=== PATIENT | female | born 1990 | race Caucasian/White ===

== ENCOUNTER 2021-11-07 19:13 | Emergency (ER) | payer MEDICAID ==
[~2021-11-07] VITALS: Ht 149.9 cm; Wt 61.4 kg
[2021-11-07] MEDS ORDERED: FAMOTIDINE INJ 20MG/2ML VIAL (S0028 PER 1) IVP ONE (20:05)
[2021-11-07] MEDS ORDERED: methylPREDNISolone 125MG 2ML VIAL IV ONE (20:05)
[2021-11-07 20:13] VITALS: BP 120/69
[2021-11-07] MEDS ORDERED: ZOLO25TA PO (21:23)
[2021-11-07] MEDS ORDERED: LAMI5CHW PO (21:25)
[2021-11-07] MEDS ORDERED: LATU20TA PO (21:26)
[2021-11-07] MEDS ORDERED: ZOLO100T PO (21:45)
[2021-11-07] MEDS ORDERED: LAMI1TAB8 PO (21:47)
[2021-11-07] MEDS ORDERED: LATU120T PO (21:47)
[2021-11-07] MEDS ORDERED: CLON0.2T PO (21:48)
[2021-11-07] MEDS ORDERED: OMEP40CA4 PO (21:50)
== END 2021-11-07 22:29 | disposition home or self-care (01) ==
LOC: M ED 19:13
DX: L50.9 Urticaria, unspecified (principal); T36.0X5A Adverse effect of penicillins, initial encounter; Z88.0 Allergy status to penicillin
CPT/HCPCS: 93041; 94760; 96374; 96375; 99285; J2930

== ENCOUNTER 2022-04-23 22:24 | Emergency (ER) | payer MEDICAID ==
[~2022-04-23] VITALS: Ht 149.9 cm; Wt 66.2 kg
[~2022-04-23 22:24] MED LIST: CLON0.2T PO; LAMI1TAB8 PO; LAMI5CHW PO; LATU120T PO; LATU20TA PO; OMEP40CA4 PO; ZOLO100T PO; ZOLO25TA PO
[2022-04-23 22:25] VITALS: BP 121/79
[2022-04-24 00:53] LABS: BASO % 0.3 % (0.0-1.0); EOS # 0.1 10^3/uL (0.0-0.5); EOS % 0.7 % (0.0-3.0); HEMATOCRIT 41.9 % (36.0-47.0); HEMOGLOBIN 13.9 g/dl (12.0-15.5); LYMPH # 4.5 10^3/uL (1.5-5.0); LYMPH % 37.2 % (24.0-44.0); MEAN CORPUSCULAR HEMOGLOBIN 28.5 pg (27.0-33.0); MEAN CORPUSCULAR HGB CONC 33.2 g/dl (32.0-36.5); MONO # 0.7 10^3/uL (0.0-0.8); MONO % 5.9 % (2.0-8.0); NEUTROPHILS # 6.7 10^3/uL (1.5-8.5); NEUTROPHILS % 55.7 % (36.0-66.0); PLATELET COUNT, AUTOMATED 326 10^3/uL (150-450); RED BLOOD COUNT 4.87 10^6/uL (4.00-5.40)
[2022-04-24 01:21] LABS: ALBUMIN 4.2 GM/DL (3.2-5.2); ALT/SGPT 18 U/L (12-78); AMYLASE 66 U/L (25-115); BILIRUBIN,DIRECT < 0.1 MG/DL (0.0-0.2); BILIRUBIN,TOTAL 0.2 MG/DL (0.2-1.0); BLOOD UREA NITROGEN 11 MG/DL (7-18); CALCIUM LEVEL 9.9 MG/DL (8.5-10.1); CARBON DIOXIDE LEVEL 28 MEQ/L (21-32); CHLORIDE LEVEL 106 MEQ/L (98-107); GLOMERULAR FILTRATION RATE > 60.0 (>60); GLUCOSE, FASTING 102 MG/DL (70-100); LIPASE 286 U/L (73-393); POTASSIUM SERUM 4.4 MEQ/L (3.5-5.1); SODIUM LEVEL 140 MEQ/L (136-145); TOTAL PROTEIN 7.8 GM/DL (6.4-8.2)
[2022-04-24] MEDS ORDERED: VIEN1TAB (13:46)
[2022-04-24] MEDS ORDERED: LINZ290C (13:46)
== END 2022-04-24 02:00 | disposition left against medical advice (07) ==
LOC: M ED 22:24
DX: Z53.21 Procedure and treatment not carried out due to patient leaving prior to being seen by health care provider (principal)

== ENCOUNTER 2022-04-24 13:35 | Emergency (ER) | payer MEDICAID, MEDICARE ==
[~2022-04-24] VITALS: Ht 149.9 cm; Wt 66.0 kg
[2022-04-24] MEDS ORDERED: VIEN1TAB (13:46)
[2022-04-24] MEDS ORDERED: LINZ290C (13:46)
[2022-04-24 14:44] LABS: HEMATOCRIT 39.5 % (36.0-47.0); HEMOGLOBIN 13.2 g/dl (12.0-15.5); MEAN CORPUSCULAR HEMOGLOBIN 28.5 pg (27.0-33.0); MEAN CORPUSCULAR HGB CONC 33.4 g/dl (32.0-36.5); MEAN CORPUSCULAR VOLUME 85.3 fl (80.0-96.0); PLATELET COUNT, AUTOMATED 275 10^3/uL (150-450); RED BLOOD COUNT 4.63 10^6/uL (4.00-5.40); WHITE BLOOD COUNT 8.3 10^3/uL (4.0-10.0)
[2022-04-24 15:09] LABS: HCG, SERUM QUALITATIVE NEGATIVE (NEGATIVE)
[2022-04-24 15:14] LABS: AMPHETAMINES LEVEL URINE NEGATIVE (NEGATIVE); BARBITURATES URINE NEGATIVE (NEGATIVE); BENZODIAZEPINES URINE POSITIVE (NEGATIVE); CANNABINOIDS URINE POSITIVE (NEGATIVE); COCAINE METABOLITE URINE NEGATIVE (NEGATIVE); METHADONE URINE NEGATIVE (NEGATIVE); OPIATES URINE NEGATIVE (NEGATIVE); PHENCYCLIDINE URINE NEGATIVE (NEGATIVE)
[2022-04-24 15:26] LABS: ACETAMINOPHEN LEVEL < 2.0 UG/ML (10.0-30.0); ALBUMIN 3.9 GM/DL (3.2-5.2); ALT/SGPT 16 U/L (12-78); BILIRUBIN,DIRECT < 0.1 MG/DL (0.0-0.2); BILIRUBIN,TOTAL 0.2 MG/DL (0.2-1.0); BLOOD UREA NITROGEN 11 MG/DL (7-18); CALCIUM LEVEL 9.9 MG/DL (8.5-10.1); CARBON DIOXIDE LEVEL 25 MEQ/L (21-32); CHLORIDE LEVEL 107 MEQ/L (98-107); CREATININE FOR GFR 0.96 MG/DL (0.55-1.30); ETHYL ALCOHOL (ETHANOL) < 0.003 % (0.000-0.010); GLOMERULAR FILTRATION RATE > 60.0 (>60); GLUCOSE, FASTING 86 MG/DL (70-100); LIPASE 247 U/L (73-393); POTASSIUM SERUM 4.3 MEQ/L (3.5-5.1); SALICYLATE LEVEL < 1.7 MG/DL (5.0-30.0); SODIUM LEVEL 140 MEQ/L (136-145); TOTAL PROTEIN 7.2 GM/DL (6.4-8.2)
[2022-04-24] MEDS ORDERED: GI COCKTAIL 50ML BTL(HYOSCYAMINE/MAALOX/LIDOCAINE VISCOUS)(1:3:1) PO ONE (15:35)
[2022-04-24 19:07] VITALS: BP 114/68
== END 2022-04-24 19:26 | disposition home or self-care (01) ==
LOC: M ED 13:35
DX: R10.9 Unspecified abdominal pain (principal); F60.3 Borderline personality disorder; Z88.0 Allergy status to penicillin; Z79.899 Other long term (current) drug therapy

== ENCOUNTER 2024-02-12 18:09 | Emergency (ER) | payer OTHER, MEDICAID ==
[~2024-02-12] VITALS: Ht 149.9 cm; Wt 79.4 kg
[~2024-02-12 18:09] MED LIST changes: +LINZ290C; +VIEN1TAB
[2024-02-12] MEDS ORDERED: DULO1CAP6 PO (18:26)
[2024-02-12] MEDS ORDERED: JUNETAB PO (18:26)
[2024-02-12] MEDS ORDERED: TRAZ150T90 PO (18:26)
[2024-02-12] MEDS ORDERED: PRAZ1CAP PO (18:26)
[2024-02-12] MEDS ORDERED: GABA-282 PO (18:26)
[2024-02-12] MEDS: ONDANSETRON 4MG ORAL DISINTEGRATING TAB PO ONE (19:04)
[2024-02-12 19:06] LABS: HEMATOCRIT 39.2 % (36.0-47.0); HEMOGLOBIN 12.9 g/dl (12.0-15.5); MEAN CORPUSCULAR HEMOGLOBIN 26.7 pg (27.0-33.0); MEAN CORPUSCULAR HGB CONC 32.9 g/dl (32.0-36.5); MEAN CORPUSCULAR VOLUME 81.2 fl (80.0-96.0); PLATELET COUNT, AUTOMATED 287 10^3/uL (150-450); RED BLOOD COUNT 4.83 10^6/uL (4.00-5.40); WHITE BLOOD COUNT 10.1 10^3/uL (4.0-10.0)
[2024-02-12 19:29] LABS: AMPHETAMINES LEVEL URINE NEGATIVE (NEGATIVE); BARBITURATES URINE NEGATIVE (NEGATIVE); BENZODIAZEPINES URINE NEGATIVE (NEGATIVE); COCAINE METABOLITE URINE NEGATIVE (NEGATIVE); METHADONE URINE NEGATIVE (NEGATIVE); OPIATES URINE NEGATIVE (NEGATIVE); PHENCYCLIDINE URINE NEGATIVE (NEGATIVE)
[2024-02-12 19:30] LABS: CANNABINOIDS URINE NEGATIVE (NEGATIVE)
[2024-02-12 19:33] LABS: ALBUMIN 3.6 G/DL (3.2-5.2); ALKALINE PHOSPHATASE 87 U/L (46-116); ALT/SGPT 20 U/L (7.0-40); AST/SGOT 16 U/L (<34); BILIRUBIN,DIRECT < 0.1 MG/DL (<0.4); BILIRUBIN,TOTAL < 0.2 MG/DL (0.3-1.2); BLOOD UREA NITROGEN 9 MG/DL (9-23); CALCIUM LEVEL 9.4 MG/DL (8.5-10.1); CARBON DIOXIDE LEVEL 29 MMOL/L (20-31); CHLORIDE LEVEL 102 MMOL/L (98-107); CREATININE FOR GFR 0.98 MG/DL (0.55-1.30); GLOMERULAR FILTRATION RATE > 60.0 (>60); GLUCOSE, FASTING 85 MG/DL (60-100); POTASSIUM SERUM 3.8 MMOL/L (3.5-5.1); SALICYLATE LEVEL < 3.0 MG/DL (<30); SODIUM LEVEL 137 MMOL/L (136-145); TOTAL PROTEIN 7.1 G/DL (5.7-8.2)
[2024-02-12 19:35] LABS: ETHYL ALCOHOL (ETHANOL) < 0.003 % (0.000-0.010); THYROID STIMULATING HORMONE 2.386 uIU/ML (0.55-4.78)
[2024-02-12 19:36] LABS: HCG, SERUM QUALITATIVE NEGATIVE (NEGATIVE)
[2024-02-12] MEDS ORDERED: HOME MED LIST COMPLETE! XX SCH (19:40)
[2024-02-12] MEDS: JUNEL PO SCH (20:55)
[2024-02-13] MEDS: PRAZOSIN 1 MG CAP PO ONE (00:53)
[2024-02-13] MEDS: LURASIDONE HCL 40MG TAB (LATUDA) PO SCH (00:53)
[2024-02-13] MEDS: traZODone 50 MG TAB PO ONE (00:53)
[2024-02-13 03:19] VITALS: BP 138/85; TEMP 97.5; O2SAT 97
[2024-02-13] MEDS ORDERED: GABAPENTIN 300 MG CAP PO ONE (09:00)
[2024-02-13] MEDS ORDERED: OMEPRAZOLE 20MG CAP PO ONE (09:00)
[2024-02-13] MEDS ORDERED: DULoxetine 30MG CAPSULE (CYMBALTA) PO ONE (21:00)
== END 2024-02-13 03:24 | disposition short-term general hospital (02) ==
LOC: M ED 18:09
DX: R45.851 Suicidal ideations (principal); K58.9 Irritable bowel syndrome, unspecified; F60.3 Borderline personality disorder; M79.7 Fibromyalgia; Z88.0 Allergy status to penicillin; Z88.1 Allergy status to other antibiotic agents; Z88.8 Allergy status to other drugs, medicaments and biological substances; Z79.899 Other long term (current) drug therapy

== ENCOUNTER 2024-04-13 09:19 | Inpatient (IN) | payer MEDICAID, OTHER ==
[~2024-04-13] VITALS: Ht 149.9 cm; Wt 77.3 kg
[~2024-04-13 09:19] MED LIST changes: +DULO1CAP6 PO; +GABA-282 PO; +JUNETAB PO; +PRAZ1CAP PO; +TRAZ150T90 PO
[2024-04-13 10:25] LABS: HEMATOCRIT 37.6 % (36.0-47.0); HEMOGLOBIN 12.3 g/dl (12.0-15.5); MEAN CORPUSCULAR HEMOGLOBIN 26.5 pg (27.0-33.0); MEAN CORPUSCULAR HGB CONC 32.7 g/dl (32.0-36.5); MEAN CORPUSCULAR VOLUME 80.9 fl (80.0-96.0); PLATELET COUNT, AUTOMATED 249 10^3/uL (150-450); RED BLOOD COUNT 4.65 10^6/uL (4.00-5.40); WHITE BLOOD COUNT 8.6 10^3/uL (4.0-10.0)
[2024-04-13 10:54] LABS: AMPHETAMINES LEVEL URINE NEGATIVE (NEGATIVE); BARBITURATES URINE NEGATIVE (NEGATIVE); CANNABINOIDS URINE NEGATIVE (NEGATIVE); COCAINE METABOLITE URINE NEGATIVE (NEGATIVE); METHADONE URINE NEGATIVE (NEGATIVE); OPIATES URINE NEGATIVE (NEGATIVE); PHENCYCLIDINE URINE NEGATIVE (NEGATIVE)
[2024-04-13 10:55] LABS: BENZODIAZEPINES URINE NEGATIVE (NEGATIVE)
[2024-04-13 10:57] LABS: ETHYL ALCOHOL (ETHANOL) < 0.003 % (0.000-0.010)
[2024-04-13 10:59] LABS: ALBUMIN 3.4 G/DL (3.2-5.2); ALKALINE PHOSPHATASE 86 U/L (46-116); ALT/SGPT 16 U/L (7.0-40); AST/SGOT 8 U/L (<34); BILIRUBIN,DIRECT < 0.1 MG/DL (<0.4); BILIRUBIN,TOTAL 0.2 MG/DL (0.3-1.2); BLOOD UREA NITROGEN 9 MG/DL (9-23); CALCIUM LEVEL 9.6 MG/DL (8.5-10.1); CARBON DIOXIDE LEVEL 28 MMOL/L (20-31); CHLORIDE LEVEL 105 MMOL/L (98-107); CREATININE FOR GFR 1.03 MG/DL (0.55-1.30); GLOMERULAR FILTRATION RATE > 60.0 (>60); GLUCOSE, FASTING 91 MG/DL (60-100); POTASSIUM SERUM 3.9 MMOL/L (3.5-5.1); SALICYLATE LEVEL < 3.0 MG/DL (<30); SODIUM LEVEL 140 MMOL/L (136-145); TOTAL PROTEIN 6.6 G/DL (5.7-8.2)
[2024-04-13 11:01] LABS: THYROID STIMULATING HORMONE 5.647 uIU/ML (0.55-4.78)
[2024-04-13] MEDS ORDERED: MOM 30ML SUSPENSION UDC PO PRN (13:50)
[2024-04-13] MEDS ORDERED: IBUPROFEN 400MG TAB PO PRN (13:50)
[2024-04-13 14:28] LABS: HCG, SERUM QUALITATIVE NEGATIVE (NEGATIVE)
[2024-04-13] MEDS: traZODone 50 MG TAB PO PRN (20:08)
[2024-04-13 20:42] VITALS: BP 144/69
[2024-04-13] MEDS: GABAPENTIN 100 MG CAP PO ONE (20:45)
[2024-04-13] MEDS: PRAZOSIN 1 MG CAP PO ONE (20:45)
[2024-04-13] MEDS: traZODone 100 MG TAB PO ONE (20:45)
[2024-04-13] MEDS: LURASIDONE HCL 40MG TAB (LATUDA) PO ONE (20:45)
[2024-04-13] MEDS: DULoxetine 30MG CAPSULE (CYMBALTA) PO ONE (20:47)
[2024-04-14 06:19] VITALS: BP 117/57; TEMP 97.4; O2SAT 94
[2024-04-14] MEDS: ACETAMINOPHEN TAB 650MG DOSE (2X325MG) PO PRN (08:43)
[2024-04-14] MEDS ORDERED: DULO1CAP4 PO (10:08)
[2024-04-14] MEDS ORDERED: SENN-186 PO (10:08)
[2024-04-14] MEDS ORDERED: PRAZ2CAP PO (10:08)
[2024-04-14] MEDS ORDERED: TRAZ-257 PO (10:08)
[2024-04-14] MEDS ORDERED: GABA-1171 PO (10:08)
[2024-04-14] MEDS ORDERED: HOME MED LIST COMPLETE! XX SCH (10:10)
[2024-04-14] MEDS: buPROPion **XL** TABLET 150MG (WELLBUTRIN XL) PO SCH (10:50)
[2024-04-14] MEDS: diphenhydrAMINE 25MG CAP PO PRN (10:50)
[2024-04-14] MEDS: DULoxetine 20MG CAP (CYMBALTA) PO SCH (10:50)
[2024-04-14] MEDS: OMEPRAZOLE 20MG CAP PO SCH (10:51)
[2024-04-14] MEDS ORDERED: ALBUTEROL 90 MCG/ACT 8GM HFA INHALER INH PRN (16:20)
[2024-04-14 16:25] VITALS: BP 126/86; TEMP 97.3; O2SAT 98
[2024-04-14 21:16] VITALS: BP 134/83
[2024-04-14] MEDS: traZODone 100 MG TAB PO SCH (21:19)
[2024-04-14] MEDS: PRAZOSIN 1 MG CAP PO SCH (21:19)
[2024-04-14] MEDS: SENNA 8.6 MG TAB (SENOKOT) PO SCH (21:19)
[2024-04-14] MEDS: NORETHINDRONE AC ETH ESTRADIOL PO SCH (21:20)
[2024-04-15 06:20] VITALS: BP 105/58; TEMP 97.9; O2SAT 97
[2024-04-15 07:51] LABS: FREE T4 1.18 NG/DL (0.89-1.76); THYROXINE (T4) 13.3 UG/DL (4.5-10.9)
[2024-04-15 16:23] VITALS: BP 124/69; TEMP 97.2; O2SAT 96
[2024-04-16 06:28] VITALS: BP 121/58; TEMP 97; O2SAT 96
[2024-04-16 16:46] VITALS: BP 133/77; TEMP 97.4; O2SAT 97
[2024-04-16] MEDS: LURASIDONE HCL 40MG TAB (LATUDA) PO SCH (18:14)
[2024-04-16] MEDS: PRAZOSIN 1 MG CAP PO SCH (20:39)
[2024-04-17 06:33] VITALS: BP 105/66; TEMP 97; O2SAT 95
[2024-04-17] MEDS: MAALOX 30 ML SUSP *UDC PO PRN (13:03)
[2024-04-17 16:09] VITALS: BP 130/72; TEMP 97.6; O2SAT 98
[2024-04-18 06:37] VITALS: BP 116/67; TEMP 97.6; O2SAT 96
[2024-04-18 18:47] VITALS: BP 119/72; TEMP 97.2
[2024-04-18 20:10] VITALS: BP 113/60
[2024-04-18 20:13] VITALS: BP 113/60
[2024-04-19 05:55] VITALS: BP 131/64; TEMP 98.9; O2SAT 95
[2024-04-19] MEDS ORDERED: TRAZ-252 PO (08:22)
[2024-04-19] MEDS ORDERED: LATU40TA2 PO (08:22)
[2024-04-19] MEDS ORDERED: BUPR150T12 PO (08:22)
[2024-04-19] MEDS ORDERED: PRAZ1CAP PO (08:22)
[2024-04-19] MEDS ORDERED: TRAZ-257 PO (08:22)
[2024-04-19] MEDS ORDERED: DULO1CAP4 PO (08:22)
== END 2024-04-19 10:39 | disposition home or self-care (01) | DRG 881 ==
LOC: M ED 09:19 → M ED INP 13:48 → M PSY 15:20
PROVIDERS: ADMIT Student in an Organized Health Care Education/Training Program; ATTEND Student in an Organized Health Care Education/Training Program
DX: F32.A Depression, unspecified (principal); R45.851 Suicidal ideations; F32.9 Major depressive disorder, single episode, unspecified; F41.1 Generalized anxiety disorder; F60.3 Borderline personality disorder; F45.1 Undifferentiated somatoform disorder; F43.10 Post-traumatic stress disorder, unspecified; Z62.810 Personal history of physical and sexual abuse in childhood; Z62.811 Personal history of psychological abuse in childhood; Z59.89 Other problems related to housing and economic circumstances; F12.90 Cannabis use, unspecified, uncomplicated; K21.9 Gastro-esophageal reflux disease without esophagitis; M79.7 Fibromyalgia; Z88.0 Allergy status to penicillin; Z79.899 Other long term (current) drug therapy; G47.00 Insomnia, unspecified; K58.8 Other irritable bowel syndrome; G90.A Postural orthostatic tachycardia syndrome [POTS]; J45.909 Unspecified asthma, uncomplicated

== ENCOUNTER → 2024-05-31 | Outpatient (CLI) | payer OTHER ==
[~2024-05-31] MED LIST changes: +BUPR150T12 PO; +DULO1CAP4 PO; +GABA-1171 PO; +LATU40TA2 PO; +PRAZ2CAP PO; +SENN-186 PO; +TRAZ-252 PO; +TRAZ-257 PO
== END ==
LOC: M CARPUL 11:45
PROVIDERS: ATTEND Nurse Practitioner Adult Health
DX: R05.9 Cough, unspecified (principal)

== ENCOUNTER 2024-06-16 08:16 | Day surgery (SDC) | payer MEDICAID, OTHER ==
[~2024-06-16] VITALS: Ht 149.9 cm; Wt 79.7 kg
[~2024-06-16 08:16] MED LIST changes: +CYCL-707 PO; +LITH600C PO; +LURA120T PO; +NALT50TA4 PO; +OMEP40CA5 PO; +TRAZ-189 PO
[2024-06-16] MEDS: NS 1,000 ML IV ONE (08:31)
[2024-06-16] MEDS ORDERED: propofoL 500 MG/50 ML VIAL As Ordered ONE (08:41)
[2024-06-16] MEDS ORDERED: LIDOCAINE 2% 100MG/5ML SDV (FOR ANES.) As Ordered ONE (08:41)
[2024-06-16] MEDS ORDERED: fentaNYL 100 MCG/2 ML INJECTION As Ordered ONE (08:41)
[2024-06-16 09:50] VITALS: TEMP 97.3
[2024-06-16 10:10] VITALS: BP 142/80; O2SAT 98
== END 2024-06-16 10:15 | disposition home or self-care (01) ==
LOC: M OPP 08:16
PROVIDERS: ATTEND Internal Medicine Gastroenterology
DX: D12.0 Benign neoplasm of cecum (principal); D12.4 Benign neoplasm of descending colon; K63.5 Polyp of colon; K64.8 Other hemorrhoids; K58.1 Irritable bowel syndrome with constipation; K29.50 Unspecified chronic gastritis without bleeding; R10.84 Generalized abdominal pain; Z79.3 Long term (current) use of hormonal contraceptives; Z79.899 Other long term (current) drug therapy; Z88.1 Allergy status to other antibiotic agents; Z88.0 Allergy status to penicillin; Z88.8 Allergy status to other drugs, medicaments and biological substances
CPT/HCPCS: 43239; 45380; 45385; 88305; J3010

== ENCOUNTER → 2024-08-16 | Outpatient (REF) | payer MEDICAID, MEDICARE, OTHER ==
[~2024-08-16] MED LIST changes: +ELIQ5TAB PO; +FERR1TAB8 PO; +FETZ1CAP2; +GABA-1172 PO; -GABA-282 PO; +TIZA6CAP PO; +[UNRECOGNIZED DRUG - REMARK] PO
[2024-08-16 16:29] LABS: Trichomonas vaginalis (AMP) NOT DETECTED (NEGATIVE)
[2024-08-16 16:52] LABS: GC DNA AMPLIFICATION NEGATIVE (NEGATIVE)
[2024-08-18 15:17] LABS: HPV APTIMA Not Detected (Not Detected)
== END ==
LOC: M SFHCWAGY 13:30
PROVIDERS: ATTEND Nurse Practitioner Family
DX: Z12.4 Encounter for screening for malignant neoplasm of cervix (principal); R87.5 Abnormal microbiological findings in specimens from female genital organs

== ENCOUNTER → 2024-10-20 | Outpatient (CLI) | payer OTHER | LOC: M WHC 12:24 | PROVIDERS: ATTEND Nurse Practitioner Family | DX: R10.2 Pelvic and perineal pain (principal); N83.202 Unspecified ovarian cyst, left side ==

== ENCOUNTER → 2024-11-29 | Outpatient (CLI) | payer OTHER ==
[~2024-11-29] MED LIST changes: +METHACHOLINE KIT (6 VIAL.NEB PREMIX) INH ONE
== END ==
LOC: M CARPUL 13:29
PROVIDERS: ATTEND Nurse Practitioner Adult Health
DX: R05.9 Cough, unspecified (principal)
CPT/HCPCS: 94070; 95070; J7674

== ENCOUNTER → 2024-12-14 | Outpatient (REF) | payer OTHER, MEDICAID ==
[~2024-12-14] MED LIST changes: -METHACHOLINE KIT (6 VIAL.NEB PREMIX) INH ONE
[2024-12-14 18:29] LABS: BASO % 0.4 % (0.0-1.0); EOS % 0.1 % (0.0-3.0); HEMATOCRIT 41.3 % (36.0-47.0); LYMPH # 2.4 10^3/uL (1.5-5.0); LYMPH % 31.7 % (24.0-44.0); MEAN CORPUSCULAR HEMOGLOBIN 28.1 pg (27.0-33.0); MEAN CORPUSCULAR HGB CONC 33.9 g/dl (32.0-36.5); MEAN CORPUSCULAR VOLUME 82.9 fl (80.0-96.0); MONO # 0.4 10^3/uL (0.0-0.8); MONO % 4.6 % (2.0-8.0); NEUTROPHILS # 4.7 10^3/uL (1.5-8.5); NEUTROPHILS % 62.8 % (36.0-66.0); PLATELET COUNT, AUTOMATED 229 10^3/uL (150-450); RED BLOOD COUNT 4.98 10^6/uL (4.00-5.40); WHITE BLOOD COUNT 7.6 10^3/uL (4.0-10.0)
[2024-12-14 18:34] LABS: ALBUMIN 3.7 G/DL (3.2-5.2); ALKALINE PHOSPHATASE 89 U/L (35-104); ALT/SGPT 40 U/L (7.0-40); AST/SGOT 22 U/L (<34); BILIRUBIN,DIRECT < 0.1 MG/DL (<0.4); BILIRUBIN,TOTAL 0.3 MG/DL (0.3-1.2); BLOOD UREA NITROGEN 10 MG/DL (9-23); CARBON DIOXIDE LEVEL 29 MMOL/L (20-31); CHLORIDE LEVEL 103 MMOL/L (98-107); COMPLEMENT C3 211.5 MG/DL (84.0-160.0); COMPLEMENT C4 40.8 MG/DL (12-36); CREATININE FOR GFR 0.85 MG/DL (0.55-1.30); GLOMERULAR FILTRATION RATE > 60.0 (>60); GLUCOSE, FASTING 85 MG/DL (60-100); IMMUNOGLOBULIN A 251.5 MG/DL (40-350); IMMUNOGLOBULIN G 687 MG/DL (650-1600); IMMUNOGLOBULIN M 315.8 MG/DL (50-300); POTASSIUM SERUM 3.6 MMOL/L (3.5-5.1); SODIUM LEVEL 140 MMOL/L (136-145); TOTAL PROTEIN 6.9 G/DL (5.7-8.2)
[2024-12-14 18:40] LABS: ERYTHROCYTE SEDIMENTATION RATE 28 mm/hr (0-20)
[2024-12-16 22:31] LABS: T P ELECTROPHORESIS SO 6.8 g/dL (6.1-8.1)
== END ==
LOC: M SFHCRHEU 14:00
PROVIDERS: ATTEND Internal Medicine
DX: M19.90 Unspecified osteoarthritis, unspecified site (principal)

== ENCOUNTER → 2025-01-19 | Outpatient (CLI) | payer OTHER | LOC: M RAD 16:32 | PROVIDERS: ATTEND Internal Medicine | DX: M19.90 Unspecified osteoarthritis, unspecified site (principal) ==

== ENCOUNTER → 2025-01-26 | Outpatient (CLI) | payer OTHER ==
[~2025-01-26] MED LIST changes: +ALBU8.5H; +ARNU1INH; +FETZ1CAP4; +VITA1CAP25
== END ==
LOC: M RAD 16:06
PROVIDERS: ATTEND Internal Medicine
DX: M19.90 Unspecified osteoarthritis, unspecified site (principal)

== ENCOUNTER → 2025-01-30 | Outpatient (REF) | payer OTHER, MEDICAID ==
[2025-01-30 15:28] LABS: APPEARANCE, URINE CLEAR (CLEAR); BACTERIA, URINE AUTO NEGATIVE (NEGATIVE); BILIRUBIN, URINE AUTO NEGATIVE (NEGATIVE); BLOOD, URINE BLOOD NEGATIVE (NEGATIVE); COLOR, URINE YELLOW (YELLOW); GLUCOSE, URINE (UA) AUTO NEGATIVE (NEGATIVE); KETONE, URINE AUTO NEGATIVE (NEGATIVE); LEUKOCYTE ESTERASE, URINE AUTO NEGATIVE (NEGATIVE); MUCUS, URINE SMALL (NEGATIVE); NITRITE, URINE AUTO NEGATIVE (NEGATIVE); PROTEIN, URINE AUTO NEGATIVE (NEGATIVE); RBC, URINE AUTO 1 /HPF (0-3); SPECIFIC GRAVITY URINE AUTO 1.025 (1.002-1.035); SQUAMOUS EPITHELIAL CELL UR AU 3 /HPF (0-6); UROBILINOGEN, URINE AUTO 0.2 mg/dL (0.0-2.0); WBC, URINE AUTO 1 /HPF (0-3)
[2025-01-30 15:54] LABS: TOTAL PROTEIN,RANDOM URINE 12.7 MG/DL (0.0-14.0)
[2025-01-30 15:59] LABS: CREATININE,RANDOM URINE 199.3 MG/DL
== END ==
LOC: M SFHCRHEU 12:01
PROVIDERS: ATTEND Internal Medicine
DX: M19.90 Unspecified osteoarthritis, unspecified site (principal)

== ENCOUNTER → 2025-02-03 | Outpatient (REF) | payer OTHER, MEDICAID | LOC: M SFHCRHEU 10:40 | PROVIDERS: ATTEND Internal Medicine | DX: D89.2 Hypergammaglobulinemia, unspecified (principal) ==

== ENCOUNTER 2025-02-06 16:30 | Emergency (ER) | payer OTHER ==
[~2025-02-06] VITALS: Ht 149.9 cm; Wt 73.3 kg
[2025-02-06 20:14] LABS: BASO # 0.1 10^3/uL (0.0-0.2); BASO % 0.4 % (0.0-1.0); EOS # 0.1 10^3/uL (0.0-0.5); EOS % 0.6 % (0.0-3.0); HEMATOCRIT 40.3 % (36.0-47.0); LYMPH # 3.7 10^3/uL (1.5-5.0); LYMPH % 29.9 % (24.0-44.0); MEAN CORPUSCULAR HEMOGLOBIN 29.1 pg (27.0-33.0); MEAN CORPUSCULAR HGB CONC 34.7 g/dl (32.0-36.5); MEAN CORPUSCULAR VOLUME 83.8 fl (80.0-96.0); MONO # 0.6 10^3/uL (0.0-0.8); MONO % 4.4 % (2.0-8.0); NEUTROPHILS % 64.4 % (36.0-66.0); PLATELET COUNT, AUTOMATED 253 10^3/uL (150-450); RED BLOOD COUNT 4.81 10^6/uL (4.00-5.40); WHITE BLOOD COUNT 12.5 10^3/uL (4.0-10.0)
[2025-02-06 20:34] LABS: CK-MB VALUE MASS < 1.0 NG/ML (<3.6)
[2025-02-06 20:35] LABS: LIPASE 44 U/L (12-53)
[2025-02-06 20:36] LABS: CPK CREATINE PHOSPHOKINASE 30 U/L (34-145); MB/CK RELATIVE INDEX 3.33 (< OR =4)
[2025-02-06 20:37] LABS: ALBUMIN 3.8 G/DL (3.2-5.2); ALKALINE PHOSPHATASE 107 U/L (35-104); ALT/SGPT 32 U/L (7.0-40); AST/SGOT 16 U/L (<34); BILIRUBIN,DIRECT 0.1 MG/DL (<0.4); BILIRUBIN,TOTAL 0.3 MG/DL (0.3-1.2); BLOOD UREA NITROGEN 9 MG/DL (9-23); CALCIUM LEVEL 9.5 MG/DL (8.5-10.1); CARBON DIOXIDE LEVEL 30 MMOL/L (20-31); CHLORIDE LEVEL 102 MMOL/L (98-107); CREATININE FOR GFR 0.82 MG/DL (0.55-1.30); GLOMERULAR FILTRATION RATE > 90.0 (>60); GLUCOSE, FASTING 81 MG/DL (60-100); POTASSIUM SERUM 3.8 MMOL/L (3.5-5.1); SODIUM LEVEL 140 MMOL/L (136-145); TOTAL PROTEIN 7.1 G/DL (5.7-8.2)
[2025-02-06 20:39] LABS: INR 0.93; PROTHROMBIN TIME 12.7 SECONDS (12.5-14.5)
[2025-02-06] MEDS ORDERED: ISOVUE-370 76% 100ML VIAL As Ordered ONE (21:21)
[2025-02-06] MEDS: ACETAMINOPHEN 500 MG TAB PO ONE (23:35)
[2025-02-06 23:40] VITALS: BP 111/70; TEMP 96.8; O2SAT 97
== END 2025-02-06 23:42 | disposition home or self-care (01) ==
LOC: M ED 16:30
DX: G89.4 Chronic pain syndrome (principal); K57.30 Diverticulosis of large intestine without perforation or abscess without bleeding; K58.9 Irritable bowel syndrome, unspecified; K21.9 Gastro-esophageal reflux disease without esophagitis; M79.7 Fibromyalgia; J45.909 Unspecified asthma, uncomplicated; F60.3 Borderline personality disorder; F12.10 Cannabis abuse, uncomplicated; Z79.01 Long term (current) use of anticoagulants; Z88.0 Allergy status to penicillin; Z88.1 Allergy status to other antibiotic agents; Z88.5 Allergy status to narcotic agent; Z88.8 Allergy status to other drugs, medicaments and biological substances; Z91.010 Allergy to peanuts; Z91.018 Allergy to other foods; Z79.52 Long term (current) use of systemic steroids; Z79.899 Other long term (current) drug therapy
CPT/HCPCS: 36415; 71045; 71260; 74177; 80048; 80076; 82550; 82553; 83690; 84484; 85025; 85610; 93005; 99284; Q9967

== ENCOUNTER → 2025-02-06 | Outpatient (CLI) | payer OTHER | LOC: M RAD 16:18 | PROVIDERS: ATTEND Nurse Practitioner Women's Health | DX: I82.220 Acute embolism and thrombosis of inferior vena cava (principal); Z53.9 Procedure and treatment not carried out, unspecified reason ==

== ENCOUNTER → 2025-02-16 | Outpatient (CLI) | payer OTHER ==
[~2025-02-16] MED LIST changes: +ISOVUE-370 76% 100ML VIAL ONE
== END ==
LOC: M PLAIMG 12:32
PROVIDERS: ATTEND Physician Assistant Medical
DX: R10.84 Generalized abdominal pain (principal)
CPT/HCPCS: 74174; Q9967

== ENCOUNTER → 2025-04-10 | Outpatient (CLI) | payer OTHER ==
[~2025-04-10] MED LIST changes: -ISOVUE-370 76% 100ML VIAL ONE
== END ==
LOC: M EKG 14:04
PROVIDERS: ATTEND Physician Assistant
DX: R00.2 Palpitations (principal)

== ENCOUNTER → 2025-06-19 | Outpatient (CLI) | payer OTHER ==
[2025-06-19 12:57] LABS: CHOLESTEROL LEVEL 191.0 MG/DL (<200); CHOLESTEROL RISK RATIO 4.32 (<5); FREE T4 1.43 NG/DL (0.89-1.76); LDL CHOLESTEROL 119.4 MG/DL (<100); NON-HDL-C 146.8 MG/DL; TRIGLYCERIDES LEVEL 137.0 MG/DL (<150)
== END ==
LOC: M CARPUL 10:51
PROVIDERS: ATTEND Internal Medicine Cardiovascular Disease
DX: R00.2 Palpitations (principal); R06.02 Shortness of breath; E78.5 Hyperlipidemia, unspecified

== ENCOUNTER → 2025-06-20 | Outpatient (CLI) | payer OTHER | LOC: M CARPUL 15:04 | PROVIDERS: ATTEND Internal Medicine Cardiovascular Disease | DX: R00.2 Palpitations (principal); R06.02 Shortness of breath ==